=== PATIENT | male | born 1990 | race Caucasian/White ===

== ENCOUNTER 2023-10-01 10:53 | Emergency (ER) | payer OTHER ==
[~2023-10-01] VITALS: Ht 167.6 cm; Wt 66.0 kg
[2023-10-01 11:08] VITALS: O2SAT 98
[2023-10-01] MEDS ORDERED: PHEN100C4 MT (12:04)
[2023-10-01] MEDS ORDERED: GABA-532 MT (12:04)
[2023-10-01 13:19] VITALS: BP 128/76; PULSE 62; RESP 18; TEMP 98.5
[2023-10-01] MEDS: GABAPENTIN 300MG CAPSULE PO ONE (13:21)
[2023-10-01] MEDS: PHENYTOIN SODIUM EXTENDED 100MG CAPSULE PO ONE (13:21)
== END 2023-10-01 13:44 | disposition home or self-care (01) ==
LOC: ER 11:04
DX: G40.909 Epilepsy, unspecified, not intractable, without status epilepticus (principal); Z76.0 Encounter for issue of repeat prescription; Z98.890 Other specified postprocedural states
CPT/HCPCS: 99281

== ENCOUNTER 2023-10-28 08:53 | Emergency (ER) | payer MEDICAID, OTHER ==
[~2023-10-28] VITALS: Ht 167.6 cm; Wt 75.0 kg
[~2023-10-28 08:53] MED LIST: GABA-532 MT; PHEN100C4 MT
[2023-10-28 09:04] VITALS: O2SAT 100
[2023-10-28] MEDS ORDERED: GABA-532 MT (09:39)
[2023-10-28] MEDS ORDERED: PHEN100C4 MT (09:39)
[2023-10-28 09:55] VITALS: BP 118/74; PULSE 72; RESP 18; TEMP 98.7
== END 2023-10-28 09:55 | disposition home or self-care (01) ==
LOC: ER 09:14
DX: R56.9 Unspecified convulsions (principal); Z76.0 Encounter for issue of repeat prescription
CPT/HCPCS: 99281

== ENCOUNTER 2023-11-26 16:45 | Emergency (ER) | payer OTHER ==
[~2023-11-26] VITALS: Ht 167.6 cm; Wt 72.5 kg
[2023-11-26 17:13] VITALS: O2SAT 98
[2023-11-26] MEDS ORDERED: PHEN100C4 MT (21:11)
[2023-11-26] MEDS ORDERED: GABA-532 MT (21:12)
[2023-11-26 21:19] VITALS: BP 129/70; PULSE 74; RESP 16; TEMP 36.50292; O2SAT 98
== END 2023-11-26 21:52 | disposition home or self-care (01) ==
LOC: ER 16:45
DX: Z76.0 Encounter for issue of repeat prescription (principal)
CPT/HCPCS: 99283

== ENCOUNTER 2023-12-06 17:22 | Emergency (ER) | payer OTHER ==
[~2023-12-06] VITALS: Ht 172.7 cm; Wt 85.0 kg
[2023-12-06 17:28] VITALS: O2SAT 99
[2023-12-06 17:36] VITALS: BP 122/86; PULSE 79; RESP 18; TEMP 98.1; O2SAT 95
== END 2023-12-06 20:52 | disposition left against medical advice (07) ==
LOC: ER 17:25
DX: H57.89 Other specified disorders of eye and adnexa (principal); Z53.21 Procedure and treatment not carried out due to patient leaving prior to being seen by health care provider
CPT/HCPCS: 99281

== ENCOUNTER 2024-09-02 19:24 | Emergency (ER) | payer OTHER ==
[~2024-09-02] VITALS: Ht 167.6 cm; Wt 82.0 kg
[~2024-09-02 19:24] MED LIST changes: +GABA-1180 MT; -GABA-532 MT
[2024-09-02 19:29] VITALS: O2SAT 96
[2024-09-02 19:41] VITALS: TEMP 36.7; O2SAT 98
[2024-09-02] MEDS ORDERED: IBUP-2030 MT (20:37)
[2024-09-02] MEDS ORDERED: AMOX1TAB16 MT (20:37)
[2024-09-02 20:43] VITALS: BP 147/95; PULSE 80; RESP 16
[2024-09-02] MEDS: KETOROLAC 30MG/ML VIAL IM ONE (20:43)
== END 2024-09-02 20:50 | disposition home or self-care (01) ==
LOC: ER 19:24
DX: K04.7 Periapical abscess without sinus (principal); K02.9 Dental caries, unspecified; Z79.899 Other long term (current) drug therapy
CPT/HCPCS: 96372; 99283; J1885; Z7610